=== PATIENT | male | born 1965 | race Caucasian/White ===

== ENCOUNTER → 2018-01-13 08:54 | Outpatient (CLI) | payer OTHER, SELFPAY ==
[2018-01-13 10:00] LABS: Basophil# 0.03 X10^3/uL; Basophil% 0.5 % (0-1); Eosinophil# 0.52 X10^3/uL; Hematocrit 48.9 % (40-54); Hemoglobin 16.3 g/dl (13.0-16.5); Mean Corp Hgb Conc 33.3 g/gl (32-36); Mean Corpuscular Hgb 30.8 pg (27.0-32.0); Mean Corpuscular Volume 92.3 fL (80-94); Mean Platelet Vol. 10.5 fl (6.2-12.0); Monocyte# 0.51 X10^3/uL; Monocyte% 7.8 % (0-10); Neutrophil # 3.96 X10^3/uL (2.7-7.7); Neutrophil % 60.5 % (47-70); Platelet Count 292 K/mm3 (150-450); RBC Distribution Width CV 13.2 % (11.6-14.6); White Blood Count 6.5 K/mm3 (4.4-11.0)
[2018-01-13 10:26] LABS: ALB/GLOB Ratio 0.9 RATIO (0.9-2.4); AST(SGOT) 17 U/L (15-37); Alanine Aminotransfer ALT/SGPT 25 U/L (16-61); Albumin, Serum 3.4 g/dL (3.2-5.0); Alkaline Phosphatase 89 U/L (45-117); Anion Gap 8 (5-15); BUN 17 mg/dL (7-18); BUN/Creat Ratio 14.8 RATIO (10-20); Calcium,Total 8.7 mg/dL (8.5-10.1); Chloride 108 mmol/L (98-107); Creatinine, Serum 1.15 mg/dL (0.70-1.30); EST Glomerular Filtration Rate 70 mL/min (>60); Est Glom Filt Rate - Afr Amer 85 mL/min (>60); Globulin 3.9 g/dL (2.2-4.2); Glucose 110 mg/dL (74-106); Potassium 4.1 mmol/L (3.5-5.1); Protein, Total 7.3 g/dL (6.4-8.2); Sodium Level 139 mmol/L (136-145); T4 Free Direct 1.03 ng/dL (0.76-1.46); Thyroid Stim Hormone (TSH) 1.41 uIU/mL (0.358-3.74)
[2018-01-14 09:15] LABS: T3 Total - Triiodothyronine 1.47 ng/mL (0.6-1.81)
[2018-01-15 10:46] LABS: Anti-Thyroglobulin AB < 1.0 IU/mL (0.0-0.9); Thyroglobulin, Serum Qt. 25.5 ng/mL (1.4-29.2); Thyroid Peroxidase AB 12 IU/mL (0-34)
== END ==
PROVIDERS: Family Provider Preventive Medicine Occupational Medicine; PCP Preventive Medicine Occupational Medicine; Visit Provider Dermatology Pediatric Dermatology
DX: L80 Vitiligo (principal); L57.3 Poikiloderma of Civatte; E05.90 Thyrotoxicosis, unspecified without thyrotoxic crisis or storm
CPT/HCPCS: 36415; 80053; 84432; 84439; 84443; 84480; 85025; 86376; 86800

== ENCOUNTER 2018-08-30 11:22 | Emergency (ER) | payer OTHER, SELFPAY ==
[2018-08-30 11:23] VITALS: BP 132/95; PULSE 111; RESP 16; TEMP 36.7; O2SAT 98; BMI 32.2
--- NOTE | 2018-08-30 11:37 | RAD_ITS ---
STUDY: X-RAY CHEST REASON FOR EXAM: Male, 53 years old. Pre prison placement chest x-ray. TECHNIQUE: Single frontal view of the chest. COMPARISON: None. FINDINGS: The lungs are mildly hyperexpanded. There is no demonstrated pleural abnormality. There is mild cardiomegaly. Normal mediastinum and ashley. Normal visualized pulmonary arteries. Normal visualized aortic arch and descending thoracic aorta. Normal visualized thoracic spine. Normal visualized ribs, clavicles, and shoulders. There is no demonstrated abnormality of the visualized soft tissue structures of the upper abdomen. RAD/Chest 1 View (Portable) IMPRESSION: No acute or active cardiopulmonary disease. Electronically Signed: Scooby Gusman MD at 14:53 EST , Service support ,
--- NOTE | 2018-08-30 11:37 | CT_ITS ---
STUDY: CT angiogram right lower extremity with IV contrast REASON FOR EXAM: Male, 53 years old. Purple 5th toe, painful, ischemic? RADIATION DOSAGE (If Supplied By Facility): CTDIvol = ( 10.78 ) mGy, DLP = ( 591.79 ) mGycm TECHNIQUE: Axial CT angiography multi-detector data acquisition was obtained from the knee to the toes following intravenous administration of 100ML ml of Isovue 370 contrast. Axial images and MIP images were reconstructed from the axial data set. Post-processing of the angiographic images was performed, with multiplanar reformation and 3D reconstruction. Individualized dose optimization techniques were used for this CT. TECHNICAL QUALITY: Satisfactory COMPARISON: None. Descriptors of Narrowing: None (0%) Mild (< 50%) Moderate (50-70%) Severe (70-90%) Subtotal/Total Occlusion (90-100%) Non-Evaluable (technically non-diagnostic FINDINGS: There is mild soft tissue swelling/induration of the great toe. No deep soft tissue gas. Mild degenerative features of the interphalangeal joint. No significant degenerative features of the metatarsal phalangeal joint. There is a robust arterial flow into the distal digits including the 1st digit. Normal appearance of the evaluated portions of the popliteal artery with normal tibial peroneal trunk, normal tibioperoneal trifurcation, three-vessel runoff to the ankle with robust flow visible into the dorsalis pedis and plantar arch distributions. Normal appearance of venous outflow. No visible atherosclerotic disease. CT/CTA LWR EXTR W/O & W/DYE IMPRESSION: Normal vasculature of the lower leg, foot and toes. No evidence of atherosclerotic disease. No specific evidence of distal embolization. There is enhancement of vessels within the great toe. There is soft tissue swelling and induration of the great toe. Correlate for alternative etiologies. Electronically Signed: Garrison Bowman MD at 14:40 EST Tel , Service support ,
--- NOTE | 2018-08-30 11:38 | EKG12_ITS ---
Test Reason : Blood Pressure : / mmHG Vent. Rate : 099 BPM Atrial Rate : 099 BPM P-R Int : 146 ms QRS Dur : 088 ms QT Int : 336 ms P-R-T Axes : 061 015 033 degrees QTc Int : 431 ms Normal sinus rhythm Normal ECG Confirmed by ANGEL MONTOYA, TIMOTHY ([id number]), online editor FERNANDEZ PRAJAPATI ([id number]) on 09/01/2018 1:44:06 PM Referred By: DC Confirmed By:TIMOTHY ORTIZ MD
--- NOTE | 2018-08-30 11:45 | ED.DCSUM_ITS ---
- ER Visit Summary Date of Service: 08/30/18 Chief Complaint: Toe pain History of Present Illness: The patient is a 53 M with right small toe pain. The symptoms started just over a week ago. He has severe pain localized to the toe. He never had issues like this before. He denies trauma. He was seen at an outside facility and had negative x-rays. He has continued pain. It is not better with elevation or rest. Denies fevers or chest pain. He has a family history of cardiovascular disease. He has a history of hypertension and hyperlipidemia. His blood sugars have been borderline. He does smoke cigars daily. No fevers or recent illnesses. Physical Examination: Afebrile and vital signs unremarkable except for heart rate of 111. Nontoxic and in no acute distress. Alert and oriented. Right small toe is violaceous and cool to the touch. Exquisitely tender to palpation. No deformities. Skin intact. The remainder of his foot is unremarkable. Exam otherwise unremarkable. Test Results: EKG, chest x-ray, labs, and CT abdomen/pelvis with runoffs is pending. Emergency Department Course and Treatment: Patient has an ischemic right small toe. He was treated with fentanyl while awaiting results. Will evaluate for other vascular disease. EKG showed sinus rhythm at a rate of 99. No sign of acute ischemia or infarction pattern. While he was here, he did have some intermittent right shoulder pain which was severe. Repeat EKG was done and unremarkable. The pain subsided spontaneously. Chest x-ray showed no acute disease. Hemoglobin 17.4. Metabolic panel normal. Coags and troponin normal. CTA of his legs showed normal vasculature. No sign of embolic disease or obstruction. Patient required a total of 5 doses of fentanyl and 1 dose of Dilaudid IV due to continued and intractable pain. While he was here, he maintained good DP and PT pulses. He had no progression of the color change. I suspect he has an ischemic toe and will need amputation. I am not sure what is causing the ischemia. I spoke with Dr. Hrenandez here, and she advised that we do not have vascular coverage available. I spoke with Dr. Cervantes who also advised transfer to a tertiary care center. I spoke with Dr. Merino who advised that she can operate on the toe, but would also want a vascular consult and also advised a tertiary care center. Patient knows a doctor [facility] in [place] and requested [facility]. I spoke with Dr. Villarreal, a hospitalist who agreed to admit the patient. He requested that I get approval from vascular surgery. I spoke with Dr. Dawson and he or his partner will see the patient as a consult. Treatment Plan: As above Disposition: Transfer to [facility] Impression: 1. Right fifth toe ischemia This note was generated with [employer] dictation software. It may contain incorrect words, spelling, and punctuation that were not noted in review of the chart prior to signing ED Disposition - Plan for ED Patient: Chief Complaint: Lower Extremity Injury Referrals: Gurwinder Ahmadi DO [Primary Care Provider] -
[2018-08-30] MEDS: fentaNYL 100 MCG/2 ML Ampul 50 MCG IV ×5 (12:03→17:01)
[2018-08-30 12:23] LABS: Absolute Lymphocyte Count 1.67 X10^3/ul (0.83-4.51); Absolute Neutrophil Count 4.8 X10^3/uL (2.0-7.7); Basophil# 0.03 X10^3/uL; Basophil% 0.4 % (0-1); Eosinophil# 0.49 X10^3/uL; Eosinophils% 6.4 % (0-5); Hematocrit 50.9 % (40-54); Hemoglobin 17.4 g/dl (13.0-16.5); Lymphocyte # 1.67 X10^3/ul (4.0); Lymphocyte % 21.9 % (19-41); Mean Corp Hgb Conc 34.2 g/gl (32-36); Mean Corpuscular Hgb 31.9 pg (27.0-32.0); Mean Corpuscular Volume 93.4 fL (80-94); Mean Platelet Vol. 10.4 fl (6.2-12.0); Monocyte# 0.63 X10^3/uL; Monocyte% 8.3 % (0-10); Neutrophil # 4.78 X10^3/uL (2.7-7.7); Neutrophil % 62.9 % (47-70); POSITIVE COUNT NO; POSITIVE DIFFERENTIAL NO; POSITIVE MORPHOLOGY NO; Platelet Count 289 K/mm3 (150-450); RBC Distribution Width CV 13.5 % (11.6-14.6); RBC Distribution Width SD 45.9 fl (35.1-43.9); Red Blood Count 5.45 M/mm3 (4.6-6.2); White Blood Count 7.6 K/mm3 (4.4-11.0)
[2018-08-30 12:29] LABS: International Normalized Ratio 0.9; Prothrombin Time (Protime)PT. 12.4 SECONDS (11.7-14.9)
[2018-08-30 12:30] LABS: Partial Thromboplast Time 28.6 Seconds (24.1-36.2)
--- NOTE | 2018-08-30 12:31 | EKG12_ITS ---
Test Reason : Blood Pressure : / mmHG Vent. Rate : 103 BPM Atrial Rate : 103 BPM P-R Int : 138 ms QRS Dur : 082 ms QT Int : 360 ms P-R-T Axes : 071 052 038 degrees QTc Int : 471 ms Sinus tachycardia Otherwise normal ECG Confirmed by AGNEL MONTOYA, TIMOTHY ([id number]), acquisitions editor FERNANDEZ PRAJAPATI ([id number]) on 09/01/2018 2:03:48 PM Referred By: DC Confirmed By:TIMOTHY ORTIZ MD
[2018-08-30 12:38] LABS: Anion Gap 8 (5-15); BUN 17 mg/dL (7-18); Calcium,Total 8.8 mg/dL (8.5-10.1); Chloride 107 mmol/L (98-107); Creatinine, Serum 1.06 mg/dL (0.70-1.30); EST Glomerular Filtration Rate 77 mL/min (>60); Est Glom Filt Rate - Afr Amer 93 mL/min (>60); Estimated Creatinine Clearance 96.67 ml/min; Glucose 91 mg/dL (74-106); Potassium 4.1 mmol/L (3.5-5.1); Sodium Level 141 mmol/L (136-145)
[2018-08-30 12:39] VITALS: BP 182/112; PULSE 102; RESP 11; O2SAT 97
[2018-08-30 13:11] VITALS: BP 151/99; PULSE 93; RESP 12; O2SAT 97
[2018-08-30 14:28] VITALS: BP 135/84; PULSE 89; RESP 22; O2SAT 96
[2018-08-30] MEDS: HYDROmorphone 1 MG/ML Syringe IV (14:32)
[2018-08-30 15:32] VITALS: BP 157/87; PULSE 89; RESP 14; O2SAT 97
--- NOTE | 2018-08-30 16:13 | NURSING ---
CALLED [facility] FOR TRANSFER.
--- NOTE | 2018-08-30 16:30 | NURSING ---
DR Phil YANES
--- NOTE | 2018-08-30 16:51 | NURSING ---
[facility] [id number] REPORT [phone]
--- NOTE | 2018-08-30 16:57 | ED.RN ---
CALLED REPORT TO SAMEER CURRIE. INFORMED HER THAT HE IS GOING BY PRIVATE VEHICLE.
[2018-08-30 17:10] VITALS: BP 158/90; PULSE 97; RESP 20
== END 2018-08-30 17:18 | disposition home or self-care (01) ==
LOC: ED 12:02
PROVIDERS: Emergency Provider Emergency Medicine; Family Provider Preventive Medicine Occupational Medicine; PCP Preventive Medicine Occupational Medicine
DX: I99.8 Other disorder of circulatory system (principal); M25.511 Pain in right shoulder; I10 Essential (primary) hypertension; E78.5 Hyperlipidemia, unspecified; Z72.0 Tobacco use
CPT/HCPCS: 71045; 73706; 80048; 84484; 85025; 85610; 85730; 93005; 96374; 99285; Q9967; A4216

== ENCOUNTER 2019-08-15 19:04 | Emergency (ER) | payer OTHER, SELFPAY ==
[2019-08-15 19:05] VITALS: BP 182/103; PULSE 98; RESP 15; TEMP 36.2; O2SAT 97; BMI 30.8
--- NOTE | 2019-08-15 19:14 | ED.VIS.GEN ---
History of Present Illness Chief Complaint: Edema Informant: Patient Onset: Today Context: Gradual Onset Timing: Continuous Current Severity: Moderate Maximum Severity: Moderate Narrative: The patient presents to the emergency department with right-sided facial swelling. Patient states that he had lunch normally at about noon. He states that about aching his cheek. He states he did not pay much attention to it. Shortly thereafter, he noticed that his cheek with swelling. He denies any trouble speaking or swallowing. He denies any fevers or chills. He states it aches when he eats, but denies any definitive pain. Prior similar symptoms: No Recent Illness/Hospitalization: No Past Medical History - Allergies and Home Meds Allergies/Adverse Reactions: Allergies Penicillins [PCN] Allergy (Verified 08/15/19 19:04) Swelling Primary Care Physician: Jack Green MD [STAFF PHYSICIAN] - Prior records reviewed: Yes Past Medical History: - Smoking Status: Current every day smoker Review of Systems ROS: - Hypertension General: Denies: Chills, Fever, Sweats Eyes: Denies: Visual changes - bilaterally, Diplopia ENT: Denies: Rhinorrhea, Sore throat Cardiovascular: Denies: Chest pain, Palpitations Respiratory: Denies: Dyspnea, Cough, Dyspnea on exertion Gastrointestinal: Denies: Abdominal pain, Nausea, Vomiting, Diarrhea, Melena, Hematochezia Genitourinary: Denies: Dysuria, Hematuria, Frequency Musculoskeletal: Denies: Back pain, Extremity Pain Skin: Denies: Rash, Wounds Neurological: Denies: Headache, Weakness, Numbness Physical Exam Vital Signs/Narrative: Vital Signs Temp Pulse Resp BP Pulse Ox 08/15/19 19:05 97.1 F L 98 15 182/103 H 97 Inital Vital Signs reviewed: Yes General: Well nourished, Well developed, No Acute Distress Head: Normocephalic, Atraumatic Eyes: Perrl, EOMI ENT: Moist mucous membranes, No rhinorrhea, - - The patient has localized swelling over his right parotid gland. There is no purulence that can be expressed. There is no ductal dilation within his mouth. He has no trismus or stridor. Neck: Supple, Nontender Cardiovascular: Regular rate, Regular rhythm, No murmurs Respiratory: No distress, CTA bilaterally, Chest nontender Abdomen: Soft, Nontender, Nondistended, Normal bowel sounds Back: Nontender, Normal Inspection Extremities: Nontender, No edema Skin: Normal color, No rash Neurological: Alert, Oriented x3, Cranial nerves II-XII grossly intact, Normal Strength, Normal Sensation Psychological: Normal affect, Normal Mood Diagnostic/Tx/Re-eval - Medical Decision Making I do feel the patient likely has parotitis or even an obstructing stone. He is afebrile. He really has no significant pain. He will be placed on clindamycin, continue salivary treatments, and we given outpatient ENT follow-up. He is comfortable with this plan of care. Impression 1. Parotitis ED Disposition - Plan for ED Patient: Instructions: Salivary Gland Infection Prescriptions: Clindamycin [Cleocin] 300 mg PO 4X/DAY #80 cap Prescription Printed Referrals: Jack Green MD [STAFF PHYSICIAN] -
[2019-08-15] MEDS: Clindamycin HCl 150 MG Capsule 450 MG PO (19:28)
[2019-08-15 19:32] VITALS: RESP 17
== END 2019-08-15 19:32 | disposition home or self-care (01) ==
LOC: ED 19:24
PROVIDERS: Emergency Provider Emergency Medicine; Family Provider Preventive Medicine Occupational Medicine; PCP Preventive Medicine Occupational Medicine
DX: K11.20 Sialoadenitis, unspecified (principal); F17.200 Nicotine dependence, unspecified, uncomplicated; Z88.0 Allergy status to penicillin
CPT/HCPCS: 99283